=== PATIENT | male | born 1990 | race Caucasian/White ===

== ENCOUNTER 2019-04-26 10:17 | Emergency (ER) | payer SELFPAY ==
[~2019-04-26] VITALS: Ht 170 cm; Wt 62.4 kg
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
[2019-04-26] MEDS ORDERED: HYDR-4226 PO (11:28)
[2019-04-26] MEDS ORDERED: ONDA4TAB11 PO (11:28)
[2019-04-26 11:47] VITALS: BP 120/56
--- OUTSIDE RECORDS SUMMARY | 2019-04-28 19:14 | XMS REPORT ---
Author Author Jayesh DEVINE Organization [employer] Address Unknown Phone Unavailable Care Team Providers Care Beauty Operator Name Role Phone SONIDO DEVINE CP Unavailable Allergies, Adverse Reactions, Alerts Substance Reaction Event Type N.K.D.A. Info Not Available Non Drug Allergy Problems Problem Type Condition Code Onset Dates Condition Statu s Assessment Ringworm of body B35.4 Active Assessment Tinea pedis of both feet B35.3 Act diana Medications Medication Code System Code Instructions Start Date End Date Status Dosage Lotrimin AF Deodorant Powder [facility] [address] 2 % Externally Twice a day 1 application to affected area Ketoconazole [facility] [address]-59 2 % Externally Twice a day Dec 17 16 apply thin layer to bilat feet/arm and scapula/ right ear Procedures Procedure Coding System Code Date COMPREHEN METABOLIC PANEL CPT-4 96564 Nov VENIPUNCT, ROUTINE* CPT-4 50767 Dec 18, 2015 Office Visit, New Pt., Level 3 CPT-4 46284 O 2015 Vital Signs Date/Time: Dec 18, 2015 Cardiac Monitoring Heart Rate 80 bpm Weight 132.0 lbs Height 65.5 in BMI 21.63 Index Blood Pressure Diastolic 80 mmHg Blood Pressure Systolic 120 mmHg Results Name Result Date Reference Range Unit Abnormali ty Flag ROUTINE VENIPUNCTURE CMP ----Sodium, Serum 142 20151218 136-144 mmol/L ----BUN/Creatinine Ratio 11 20151218 8-19 ----Chloride, Serum 100 20151218 97-106 mmol/L ----Potassium, Serum 4.3 20151218 3.5-5.2 mmol/L ----Calcium, Serum 9.9 20151218 8.7-10.2 mg/dL ----Protein, Total, Serum 7.9 20151218 6.0-8.5 g/dL ----Carbon Dioxide, Total 24 20151218 18-29 mmol/L ----A/G Ratio 2.0 20151218 1.1-2.5 ----eGFR If NonAfricn Am 109 [id number] >59 mL/min/1.73 ----Bilirubin, Total 1.0 20151218 0.0-1.2 mg/dL ----eGFR If Africn Am 126 [id number] >59 mL/min/1.73 ----BUN 11 20151218 6-20 mg/dL ----Albumin, Serum 5.3 20151218 3.5-5.5 g/dL ----Globulin, Total 2.6 20151218 1.5-4.5 g/dL ----Creatinine, Serum 0.97 20151218 0.76-1.27 mg/dL ----ALT (SGPT) 27 20151218 0-44 IU/L ----Glucose, Serum 81 20151218 65-99 mg/dL ----Alkaline Phosphatase, S 83 20151218 39-117 IU/L ----AST (SGOT) 32 20151218 0-40 IU/L Summary Purpose [employer] Submission
--- OUTSIDE RECORDS SUMMARY | 2019-04-28 19:14 | XMS REPORT | Continuity of Care Document ---
Author Organization Unknown Address Unknown Phone Unavailable Allergies Active Description Code Type Severity Reaction Onset Reported/Identified Relationship to Patient Clinical Status Yes No Known Drug Allergies [id number] Drug Allergy Unknown N/A 04/26/2019 Medications There is no data. Problems There is no data. Procedures There is no data. Results Test Result Range CBC - 03/03/19 12:10 WHITE BLOOD CELL COUNT 9.2 Thousand/uL 3 .8-10.8 RED BLOOD CELL COUNT 4.36 Million/uL 4.2 0-5.80 HEMOGLOBIN 16.3 g/dL 13.2-17.1 HEMATOCRIT 48.0 % 38.5-50.0 MCV 110.1 fL 80.0-100.0 MCH 37.4 pg 27.0-33.0 MCHC 34.0 g/dL 32.0-36.0 RDW 10.9 % 11.0-15.0 PLATELET COUNT 340 Thousand/uL 140-400 MPV 9.9 fL 7.5-12.5 ABSOLUTE NEUTROPHILS 6118 cells/uL 1500- 7800 ABSOLUTE LYMPHOCYTES 1969 cells/uL 850-3 900 ABSOLUTE MONOCYTES 524 cells/uL 200-950 ABSOLUTE EOSINOPHILS 488 cells/uL 15-500 ABSOLUTE BASOPHILS 101 cells/uL 0-200 NEUTROPHILS 66.5 % NRG LYMPHOCYTES 21.4 % NRG MONOCYTES 5.7 % NRG EOSINOPHILS 5.3 % NRG BASOPHILS 1.1 % NRG Encounters ACCT No. Visit Date/Time Discharge Status Pt. Type Provider Facility Loc./Unit Complaint [id number] 03/03/2019 11:15:00 03/03/2019 23:59: 59 [facility] [id number] 03/03/2019 11:15:00 Document Registration [id number] 04/26/2019 10:19:00 020 11:50:00 DIS Emergency JORDAN CAMEJO DO [facility] ER FS LT KNEE INJ
--- OUTSIDE RECORDS SUMMARY | 2019-04-28 19:14 | XMS REPORT ---
Author Author Jayesh DEVINE Organization [employer] Address Unknown Phone Unavailable Care Team Providers Care Swimming Coach Or Instructor Name Role Phone SONIDO DEVINE CP Unavailable Allergies No Known Allergies Problems No Known Problems Medications Medication Code System Code Instructions Start Date End Date Status Dosage Terbinafine HCl [facility] [address]-95 250 MG Orally Once a day Dec 22, 2015 Feb 20, 2016 1 tablet Results No Known Results Summary Purpose [employer] Submission
== END 2019-04-26 11:50 | disposition home or self-care (01) ==
LOC: ER FS 10:19
DX: S09.90XA Unspecified injury of head, initial encounter (principal); S00.83XA Contusion of other part of head, initial encounter; S89.92XA Unspecified injury of left lower leg, initial encounter; F17.210 Nicotine dependence, cigarettes, uncomplicated; V86.06XA Driver of dirt bike or motor/cross bike injured in traffic accident, initial encounter
CPT/HCPCS: 70450; 73562